=== PATIENT | male | born 1960 | race Caucasian/White ===

== ENCOUNTER 2018-11-13 04:25 | Observation (INO) | payer OTHER ==
[2018-11-13] MEDS ORDERED: Ondansetron ODT 4 MG TAB SL PRN (05:59)
[2018-11-13] MEDS ORDERED: Morphine 4 MG/ML VIAL SLOW IVP PRN ×2 (05:59→07:31)
[2018-11-13] MEDS ORDERED: Ondansetron PF 4 MG/2 ML Vial IVP PRN (05:59)
[2018-11-13 06:11] VITALS: BMI 30.4
[2018-11-13] MEDS ORDERED: Acetaminophen 1,000 MG in Premix Bag 1 BAG IVPB PRN (07:31)
[2018-11-13] MEDS ORDERED: Ketorolac Tromethamine 30 MG/ML VIAL IVP PRN (07:31)
[2018-11-13] MEDS ORDERED: Ketorolac Tromethamine 30 MG/ML VIAL IVP SCH (07:45)
[2018-11-13] MEDS ORDERED: Sodium Chloride 0.9% 1,000 ML IV SCH (07:45)
[2018-11-13] MEDS ORDERED: Acetaminophen 1,000 MG in Premix Bag 1 BAG IVPB SCH (07:45)
[2018-11-13] MEDS ORDERED: Glycopyrrolate 0.2 MG/ML 5 ML SYRINGE ONE (08:38)
[2018-11-13] MEDS ORDERED: Dexamethasone 20 MG/5 ML VIAL ONE (08:38)
[2018-11-13] MEDS ORDERED: diphenhydrAMINE 50 MG/ML VIAL ONE (08:38)
[2018-11-13] MEDS ORDERED: PROPOFOL 200 MG/20 ML VIAL ONE (08:38)
[2018-11-13] MEDS ORDERED: Ondansetron PF 4 MG/2 ML Vial ONE (08:38)
[2018-11-13] MEDS ORDERED: Rocuronium Bromide 10 MG/ML (10ML VIAL) ONE (08:38)
[2018-11-13] MEDS ORDERED: Lidocaine 2% PF 5 ML VIAL ONE (08:38)
[2018-11-13 11:05] VITALS: BP 112/64; TEMP 98.3
[2018-11-13] MEDS ORDERED: HumaLOG 300 UNITS/3 ML VIAL SC PRN (11:37)
[2018-11-13] MEDS ORDERED: Dextrose 5% in Water 1,000 ML IV PRN (11:37)
[2018-11-13] MEDS ORDERED: Dextrose 50% Abboject 50 ML SYRINGE SLOW IVP PRN (11:37)
--- NOTE | 2018-11-13 11:59 | HP ---
HISTORY OF PRESENT ILLNESS: Juancarlos Mckenzie is a 57-year-old male from [place], went to [facility] yesterday after acute onset of abdominal pain at noon. He was transferred to [facility] Emergency Room in the middle of the night. The patient is arrived with diagnosis of appendicitis. He began having pain yesterday at noon, progressed to lower abdomen, localized right lower quadrant. He has not had any fever. He has had suffered anorexia and nausea. ALLERGIES: NONE. HABITS: Tobacco, none. Alcohol, rarely. MEDICATIONS: Metronidazole, metformin, testosterone enanthate, simvastatin, amlodipine, allopurinol. PAST MEDICAL HISTORY: Gout, hypertension, diabetes, urolithiasis. PAST SURGICAL HISTORY: At 16 years of age, he had an exploratory laparotomy for some sort of intestinal problem. He does not know the details of. He states he is in the hospital for 30 days. He had a second operation to finish the procedure. He had retention bridges. He had urethral reconstruction due to prolonged Sanchez catheter use. He is a electric truck driver. He is . REVIEW OF SYSTEMS: Noncontributory. PHYSICAL EXAMINATION: VITAL SIGNS: Height 5 feet 9 inches, 206 pounds, 30 BMI, temperature 98.3, heart rate 70, blood pressure 112/64. HEAD, EYES, EARS, NOSE, AND THROAT: Unremarkable. LUNGS: Clear to auscultation. CARDIAC: Regular rate and rhythm. No murmur or gallop. ABDOMEN: Soft. Tenderness in right lower quadrant. No guarding or rebound. Midline scar xiphoid to pubis. EXTREMITIES: Unremarkable. No ankle edema. LABORATORY DATA: Hemoglobin 13, hematocrit 39.7, white count 16. Urinalysis unremarkable. BUN 13, creatinine 1, sodium 131. IMAGING STUDIES: CAT scan of the abdomen and pelvis, distended appendix, inflammatory changes. ASSESSMENT AND PLAN: 1. Acute appendicitis. I have recommended laparoscopic video appendectomy. We will avoid Sanchez catheter as he was told to avoid catheter at his urethral reconstruction with foreskin due to prolonged Sanchez catheter use when he was 16 or 17. 2. Diabetes mellitus. 3. Hypertension. 4. Elevated cholesterol. Job ID: [id number]
[2018-11-13] MEDS ORDERED: Amlodipine 5 MG TAB PO SCH (12:00)
[2018-11-13] MEDS: Piperacillin/Tazobactam 3.375 GM in Sodium Chloride 0.9% 100 ML IVPB SCH ×2 (12:28→17:50)
[2018-11-13] MEDS ORDERED: Fentanyl 100 MCG/2 ML VIAL ONE (14:21)
[2018-11-13] MEDS ORDERED: Bupivacaine HCl 0.5%/Epinephrine 1:200,000/PF 30 ml Vial ONE (14:25)
[2018-11-13] MEDS ORDERED: Acetaminophen 500 MG TAB PO PRN (15:40)
[2018-11-13] MEDS ORDERED: traMADol HCl 50 MG TAB PO PRN ×2 (15:40)
[2018-11-13] MEDS ORDERED: Meperidine HCl/PF 25 MG/ML VIAL SLOW IVP PRN (15:42)
[2018-11-13] MEDS ORDERED: Ondansetron HCl/PF 4 MG/2 ML Vial IVP PRN (15:42)
[2018-11-13] MEDS ORDERED: Promethazine HCl 25 MG/ML VIAL IM PRN (15:42)
[2018-11-13] MEDS ORDERED: TESTOSTERONE ENANTHATE IM SCH (15:45)
[2018-11-13] MEDS ORDERED: metFORMIN 500 MG TAB PO SCH (17:00)
--- NOTE | 2018-11-13 17:29 | OP ---
DATE OF PROCEDURE: 11/13/2018 PREOPERATIVE DIAGNOSIS: Acute appendicitis. POSTOPERATIVE DIAGNOSIS: Acute appendicitis. PROCEDURE PERFORMED: Laparoscopic video appendectomy. ANESTHESIA: General, local 0.5% Marcaine with epinephrine 30 mL. DESCRIPTION OF PROCEDURE: The patient was taken to the operating room, where under general anesthesia, his abdomen was prepared with ChloraPrep and draped in routine fashion. Sanchez catheter was not used. Left lateral subcostal incision was made. Pneumoperitoneum to 15 mmHg was obtained with a Veress needle, replaced with a 5 port, and video laparoscope inserted. This was mostly in omentum. Right lateral subcostal incision was made, and a 5 port placed. Video laparoscope was inserted. This was free of adhesions. Left periumbilical incision was made, and a 5 port placed under laparoscopic visualization. This area was free of adhesions. Suprapubic incision was made, and a 12 port placed under laparoscopic visualization. Appendix was acutely inflamed. Mesoappendix was taken down with the LigaSure. The stump of the appendix divided with Endo-CRISTIN blue load stapler. Stapled cecal stump was hemostatic and secured. His appendix removed, submitted to Pathology, removed in the endobag. Good hemostasis ensured and irrigant pneumoperitoneum evacuated. All instruments removed, and suprapubic fascia was approximated with 0 Vicryl UR needle. All skin incisions were approximated with interrupted subdermal 4-0 Monocryl and [place] glue applied. Job ID: [id number]
[2018-11-13] MEDS ORDERED: Simvastatin 5 MG TAB PO SCH (21:00)
--- NOTE | 2018-11-13 23:41 | DIS ---
DATE OF ADMISSION: 11/13/2018 DATE OF DISCHARGE: 11/13/2018 DISCHARGE DIAGNOSES: Acute appendicitis, previous laparotomy, previous urethral reconstruction for prolonged catheterization after laparotomy at 16 to 17 years of age, diabetes, and hypertension. DISCHARGE MEDICATIONS: 1. Resume his home medications, oral hypoglycemics and hypertensives. 2. Tylenol and Motrin for pain. 3. Ultram if needed, #20 of the 50 mg tablets, two refills. Follow up in my office 2 to 3 weeks. HISTORY: A 57-year-old male with abdominal pain, presented, and CAT scan demonstrated appendicitis, admitted overnight for intravenous antibiotics, undergone laparoscopic video appendectomy. Discharge home with diet and activity as tolerated. Resume his diabetic diet. Follow up in my office in 2 to 3 weeks. No lifting restrictions. Job ID: [id number]
[2018-11-14] MEDS ORDERED: Amlodipine 5 MG TAB PO SCH (09:00)
[2018-11-14] MEDS ORDERED: Allopurinol 300 MG TAB PO SCH (09:00)
[2018-11-18] MEDS ORDERED: Ibuprofen 600 MG TAB PO PRN (08:00)
== END 2018-11-13 19:39 | disposition home or self-care (01) ==
LOC: ERS 04:25 → SURG A 05:03
PROVIDERS: ADMIT Specialist; ATTEND Specialist
PROC: 0DTJ4ZZ Resection of Appendix, Percutaneous Endoscopic Approach (ICD-10-PCS; principal; 2018-11-13)
DX: K35.80 Unspecified acute appendicitis (principal); I10 Essential (primary) hypertension; E11.9 Type 2 diabetes mellitus without complications; E78.00 Pure hypercholesterolemia, unspecified; Z79.84 Long term (current) use of oral hypoglycemic drugs; Z79.899 Other long term (current) drug therapy
CPT/HCPCS: 36416; 88304; 96374; 96375; 99285; G0378; J0131; J0670; J1100; J1200; J1885; J2001; J2405; J2543; J2704; J3010; J3490